=== PATIENT | male | born 1990 | race African-American/Black ===

== ENCOUNTER 2022-03-04 00:41 | Emergency (ER) | payer SELFPAY ==
[~2022-03-04] VITALS: Ht 177.8 cm; Wt 97.4 kg
[2022-03-04] MEDS ORDERED: FAMOTIDINE 20MG TABLET PO ONE (01:15)
[2022-03-04] MEDS ORDERED: ASPIRIN 325MG EC TABLET PO ONE (01:30)
[2022-03-04 02:40] VITALS: BP 149/95
== END 2022-03-04 02:40 | disposition home or self-care (01) ==
LOC: ER 01:22
DX: K21.9 Gastro-esophageal reflux disease without esophagitis (principal)
CPT/HCPCS: 71045; 93005; 99283